=== PATIENT | female | born 2000 | race Caucasian/White ===

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

== ENCOUNTER 2023-03-31 07:33 | Inpatient (IN) ==
[2023-03-31] MEDS ORDERED: SODIUM CHLORIDE 0.9% 1000ML 1,000 ML IV STA (08:07)
[2023-03-31] MEDS ORDERED: ONDANSETRON INJ 2 MG/ML 2 ML VIAL IV STA (08:07)
--- NOTE | 2023-03-31 08:14 | Emergency Department Note ---
History of Present Illness General Chief complaint: Flu Like Symptoms Stated complaint: SORE THROAT, FEVER, BACK PAIN, EAR PAIN Time Seen by Provider: 03/31/23 07:52 History of Present Illness Maximum Pain Intensity: 8 This 22-year-old female presents today with her father, for evaluation of sore throat, nausea, vomiting, ear pain, and fever. Patient states symptoms started yesterday. Since then she has vomited 3 times. She has a significant sore throat, and has been unable to eat due to her nausea and vomiting. She did attempt to drink water on her way here, but could not retain it. She states she has been urinating. No diarrhea. She is febrile this morning. No known ill contacts, but she does work at a daycare. Her worst symptom is her sore throat. Her left ear is bothersome, but she denies any change in hearing. She denies any severe abdominal pain, but does have generalized discomfort. No other complaints. Home Medications Medication Instructions Recorded Confirmed Type cefdinir 300 mg capsule 300 mg PO BID 8 days #16 caps 04/02/23 Rx ondansetron 4 mg disintegrating 4 mg PO Q8H PRN nausea and 04/02/23 Rx tablet vomiting 5 days #14 tabs Allergies Allergy/AdvReac Type Severity Reaction Status Date / Time Penicillins Allergy Verified 06/27/21 09:35 Past Med/Surg History Medical History (Updated 04/03/23 @ 22:10 by Ricky Doherty PA-C) Allergic rhinitis Sinus infection Surgical History (Updated 04/03/23 @ 22:02 by Ricky Doherty PA-C) No pertinent past surgical history Family History (Updated 03/31/23 @ 09:41 by Ricky Doherty PA-C) Other Elevated cholesterol Social History (Updated 03/31/23 @ 09:42 by Ricky Doherty PA-C) Smoking Status: Never smoker Hx Alcohol Use: No Hx Substance Use: No Preferred Language: Tongan Communication Ability: Effective Hearing Ability: Normal Cattle Tester Required: No Beliefs That Will Affect Care: None marital status: Single Current Living Situation: Other Current Living Situation Comment: Pt is college student that lives with 5 other girls current occupational status: employed current occupation: Daycare Feels Safe at Home: Yes Assistive Devices: None Review of Systems A total of 10 systems reviewed and were otherwise negative Physical Exam Vital Signs Vital Signs - 24 hr 03/31/23 07:40 03/31/23 08:30 03/31/23 09:00 Temperature 37.6 C H Temperature Source Oral Pulse Rate 136 H Pulse Rate [Right Finger] 106 H 104 H Respiratory Rate 20 18 18 Respiratory Effort / Characteristics Non-Labored Non-Labored Spontaneous Non-Labored Spontaneous Respiratory Depth Normal Normal Normal Respiratory Pattern Regular Regular Blood Pressure 122/83 Blood Pressure [Right Arm] 129/81 129/80 Blood Pressure Mean 96 Blood Pressure Mean [Right Arm] 97 96 Blood Pressure Position [Right Arm] Lying Lying Pulse Oximetry 96 97 99 Oxygen Delivery Method Room Air Room Air Room Air Sepsis Recent Fever Within 48 Hours No Sepsis New/Unexplained Change in Mental Status N/A Sepsis Action Taken by Nursing No Action Required General: Well-developed, well-nourished, young female, in no acute distress. Obvious discomfort. Sitting on the bed. Alert and oriented. Skin: Warm and dry with good turgor. No rashes or lesions. No ecchymosis or erythema. The patient is not diaphoretic. No abrasions. HEENT: Normocephalic atraumatic. Eyes PERRLA, EOMI. No conjunctiva or scleral injection. Ears TMs intact bilaterally with good light reflexes. No erythema or bulging. No hemotympanum. Canals are patent. Nares patent bilaterally without turbinate enlargement. No significant drainage. No epistaxis. Oropharynx with erythema and exudate. Uvula midline, oral mucosa moist. No lesions present. Extremely large tonsils bilaterally. Crypts with pus and clots. Lymphatics are palpated with anterior chain enlargement and tenderness. No posterior chain enlargement or tenderness. Heart: Tachycardic with regular rhythm. No MGR. Lungs: Clear to auscultation bilaterally. No crackles, rhonchi, or wheezing. Good air movement. She is able to take a deep breath. Abdomen: Abdomen was inspected, auscultated, and palpated. Obese. Bowel sounds present x 4 but infrequent. Soft, nontender to palpation. No hepato-splenome tolu. No masses noted. No rebound, negative Gonzalez sign. No pain over McBurney's point. No CVA tenderness. Musculoskeletal: Gross motor function of the upper and lower extremities is intact and unremarkable. Neurologic: Gross sensation is intact across the upper and lower extremities by soft touch. Course Administered Medications Discontinued Medications Sodium Chloride (Nss 1000ml) 1,000 mls @ 125 mls/hr IV .Q8H STA Stop: 03/31/23 16:06 Last Infusion: 03/31/23 16:27 Dose: 0 mls/hr Documented By: Admin: 03/31/23 08:27 Dose: 125 mls/hr Documented By: AJAY Ceftriaxone Sodium (Rocephin) 2,000 mg in 70 mls @ 140 mls/hr IV NOW STA Stop: 03/31/23 10:06 Last Infusion: 03/31/23 10:25 Dose: 0 mls/hr Documented By: Admin: 03/31/23 09:51 Dose: 140 mls/hr Documented By: AJAY Sodium Chloride (Nss 1000ml) 1,000 mls @ 999 mls/hr IV .Q1H1M TIMUR Stop: 03/31/23 12:51 Last Infusion: 03/31/23 13:32 Dose: 0 mls/hr Documented By: Admin: 03/31/23 12:24 Dose: 999 mls/hr Documented By: ERIKA Acetaminophen (Ofirmev) 1,000 mg in 100 mls @ 400 mls/hr IV NOW STA Stop: 03/31/23 13:13 Last Infusion: 03/31/23 13:54 Dose: 0 mls/hr Documented By: Admin: 03/31/23 13:39 Dose: 400 mls/hr Documented By: HUSSAIN Lactated Ringer's (Lr) 1,000 mls @ 999 mls/hr IV .Q1H1M ONE Stop: 03/31/23 14:05 Last Infusion: 03/31/23 14:40 Dose: 0 mls/hr Documented By: Admin: 03/31/23 13:39 Dose: 999 mls/hr Documented By: HUSSAIN Acetaminophen (Ofirmev) 1,000 mg in 100 mls @ 400 mls/hr IV Q8H PRN PRN Reason: pain(1,2,3), fever, headache Stop: 04/03/23 14:44 Last Infusion: 04/01/23 22:17 Dose: 0 mls/hr Documented By: [id number] Admin: 04/01/23 22:02 Dose: 400 mls/hr Documented By: [id number] Infusion: 04/01/23 14:33 Dose: 0 mls/hr Documented By: Admin: 04/01/23 14:18 Dose: 400 mls/hr Documented By: Infusion: 04/01/23 06:23 Dose: 0 mls/hr Documented By: Admin: 04/01/23 06:08 Dose: 400 mls/hr Documented By: Infusion: 03/31/23 21:21 Dose: 0 mls/hr Documented By: Admin: 03/31/23 21:06 Dose: 400 mls/hr Documented By: BELLO Ceftriaxone Sodium 2,000 mg/ (Dextrose) 70 mls @ 100 mls/hr IV Q24H TIMUR; Protocol Stop: 04/08/23 08:59 Last Infusion: 04/02/23 08:58 Dose: 0 mls/hr Documented By: Admin: 04/02/23 08:14 Dose: 100 mls/hr Documented By: Infusion: 04/01/23 09:23 Dose: 0 mls/hr Documented By: Admin: 04/01/23 08:41 Dose: 100 mls/hr Documented By: TIA Lactated Ringer's (Lr) 1,000 mls @ 100 mls/hr IV .Q10H TIMUR Stop: 04/01/23 00:44 Last Infusion: 04/01/23 02:35 Dose: 0 mls/hr Documented By: Admin: 03/31/23 16:35 Dose: 100 mls/hr Documented By: TIA Ioversol (Optiray 320 100ml) 92 ml IV ONCE ONE Stop: 03/31/23 12:39 Last Admin: 03/31/23 12:40 Dose: 92 ml Documented By: WILLY Menthol (Cough Drop (Sugar Free) Richard 24 Richard/1 Box) 1 richard BUCCAL Q2H PRN PRN Reason: Sore Throat Stop: 04/30/23 12:58 Last Admin: 04/01/23 20:20 Dose: 1 richard Documented By: [id number] Admin: 04/01/23 14:20 Dose: 1 richard Documented By: Admin: 04/01/23 08:44 Dose: 1 richard Documented By: TIA Methylprednisolone (Methylprednisolone 125 Mg/2 Ml Vial) 125 mg IV NOW STA Stop: 03/31/23 11:52 Last Admin: 03/31/23 12:24 Dose: 125 mg Documented By: ERIKA Ondansetron HCl (Ondansetron Inj 2 Mg/Ml 2 Ml Vial) 4 mg IV NOW STA Stop: 03/31/23 08:08 Last Admin: 03/31/23 08:27 Dose: 4 mg Documented By: AJAY Ondansetron HCl (Ondansetron Inj 2 Mg/Ml 2 Ml Vial) Confirm Administered Dose 4 mg .ROUTE .STK-MED ONE Stop: 03/31/23 10:36 Last Admin: 03/31/23 11:09 Dose: 4 mg Documented By: AJAY Ondansetron HCl (Ondansetron Inj 2 Mg/Ml 2 Ml Vial) 4 mg IV Q4H PRN PRN Reason: Nausea Stop: 04/30/23 13:21 Last Admin: 04/02/23 06:13 Dose: 4 mg Documented By: [id number] Medical Decision Making Differential Diagnosis Strep throat, viral pharyngitis, mono, sepsis, other viral illness, gastroenteritis, bowel obstruction, food poisoning, COVID Medical Records Attestation: I reviewed the patient's medical records. Home Medications Current Medication List: was personally reviewed by me Laboratory Data CBC obtained today shows an elevated white count of 28.5. H&H. Chemistry panel is unremarkable. Strep test is positive. Urine is unremarkable other than 1+ ketones. Nasal swab was negative for COVID, influenza A, influenza B, and RSV. Procalcitonin, lactate, and blood cultures were also obtained. Procalcitonin and lactate are unremarkable. Blood cultures are pending. Monospot obtained today was negative. Urine obtained today was also negative. 03/31/23 08:25 03/31/23 08:25 Lab Results 03/31/23 03/31/23 03/31/23 Range/Units 08:25 08:25 08:25 WBC 28.58 H (4.8-10.8) K/ul RBC 4.68 (4.20-5.40) M/uL Hgb 13.4 (12.0-16.0) g/dl Hct 39.6 (37.0-47.0) % MCV 84.6 (80.0-100.0) fL MCH 28.6 (25.0-34.0) pg MCHC 33.8 (32.0-36.0) g/dL RDW Std Deviation 37.9 (36.4-46.3) fL RDW Coeff of Khadra 12.6 (11.5-14.5) % Plt Count 359 (130-400) K/uL MPV 10.6 (9.4-12.4) fL Immature Gran % (Auto) 0.9 % Neut % (Auto) 89.2 % Lymph % (Auto) 3.7 % Hubbard % (Auto) 5.9 % Eos % (Auto) 0.0 % Baso % (Auto) 0.3 % Neut # (Auto) 25.48 H (1.40-6.50) K/uL Lymph # (Auto) 1.07 L (1.2-3.4) K/uL Hubbard # (Auto) 1.68 H (0.11-0.59) K/uL Eos # (Auto) 0.01 (0-0.50) K/uL Baso # (Auto) 0.08 (0-0.2) K/uL Immature Gran # (Auto) 0.26 H (0.01-0.20) K/uL Sodium 137 (136-145) mmol/L Potassium 3.6 (3.5-5.1) mmol/L Chloride 104 (98-107) mmol/L Carbon Dioxide 25 (21-32) mmol/L Anion Gap 8 (3-11) BUN 6 (6-23) mg/dl Creatinine 0.56 L (0.6-1.2) mg/dl Est Cr Clr Drug Dosing 194.4 ml/min Est GFR ( Amer) > 150.0 ml/min Est GFR (Non-Af Amer) 132.4 ml/min BUN/Creatinine Ratio 10.7 (10-20) Glucose 111 H (70-99(Fasting)) mg/dl Lactate (0.4-2.0) mmol/L Calcium 9.4 (8.6-10.3) mg/dl Total Bilirubin 0.7 (0.2-1.0) mg/dl AST 13 (13-39) U/L ALT 14 (7-52) U/L Alkaline Phosphatase 94 (34-104) U/L Total Protein 8.0 (6.0-8.3) gm/dl Albumin 4.5 (3.4-5.0) gm/dl Globulin 3.5 (2.5-4.0) gm/dl Albumin/Globulin Ratio 1.3 (0.9-2) Procalcitonin (0-0.5) ng/ml Urine Color Urine Appearance (Clear) Urine pH (4.5-7.5) Ur Specific [place] (1.000-1.030) Urine Protein (Negative) Urine Glucose (UA) (Negative) Urine Ketones (Negative) Urine Blood (Negative) Urine Nitrite (Negative) Urine Bilirubin (Negative) Urine Urobilinogen (Negative) Ur Leukocyte Esterase (Negative) Urine Test (Negative) SARS-CoV-2 (PCR) (Negative) Monoscreen Negative (Negative) Influenza Type A (PCR) (Neg) Influenza Type B (PCR) (Neg) RSV (RT-PCR) (Neg) Group A Strep (Molecular) (Negative) Group A Strep (PCR) 03/31/23 03/31/23 03/31/23 Range/Units 08:25 08:34 08:34 WBC (4.8-10.8) K/ul RBC (4.20-5.40) M/uL Hgb (12.0-16.0) g/dl Hct (37.0-47.0) % MCV (80.0-100.0) fL MCH (25.0-34.0) pg MCHC (32.0-36.0) g/dL RDW Std Deviation (36.4-46.3) fL RDW Coeff of Khadra (11.5-14.5) % Plt Count (130-400) K/uL MPV (9.4-12.4) fL Immature Gran % (Auto) % Neut % (Auto) % Lymph % (Auto) % [place] % (Auto) % Eos % (Auto) % Baso % (Auto) % Neut # (Auto) (1.40-6.50) K/uL Lymph # (Auto) (1.2-3.4) K/uL [place] # (Auto) (0.11-0.59) K/uL Eos # (Auto) (0-0.50) K/uL Baso # (Auto) (0-0.2) K/uL Immature Gran # (Auto) (0.01-0.20) K/uL Sodium (136-145) mmol/L Potassium (3.5-5.1) mmol/L Chloride (98-107) mmol/L Carbon Dioxide (21-32) mmol/L Anion Gap (3-11) BUN (6-23) mg/dl Creatinine (0.6-1.2) mg/dl Est Cr Clr Drug Dosing ml/min Est GFR ( Amer) ml/min Est GFR (Non-Af Amer) ml/min BUN/Creatinine Ratio (10-20) Glucose (70-99(Fasting)) mg/dl Lactate (0.4-2.0) mmol/L Calcium (8.6-10.3) mg/dl Total Bilirubin (0.2-1.0) mg/dl AST (13-39) U/L ALT (7-52) U/L Alkaline Phosphatase (34-104) U/L Total Protein (6.0-8.3) gm/dl Albumin (3.4-5.0) gm/dl Globulin (2.5-4.0) gm/dl Albumin/Globulin Ratio (0.9-2) Procalcitonin (0-0.5) ng/ml Urine Color Urine Appearance (Clear) Urine pH (4.5-7.5) Ur Specific [place] (1.000-1.030) Urine Protein (Negative) Urine Glucose (UA) (Negative) Urine Ketones (Negative) Urine Blood (Negative) Urine Nitrite (Negative) Urine Bilirubin (Negative) Urine Urobilinogen (Negative) Ur Leukocyte Esterase (Negative) Urine Test (Negative) SARS-CoV-2 (PCR) NEGATIVE (Negative) Monoscreen (Negative) Influenza Type A (PCR) Negative (Neg) Influenza Type B (PCR) Negative (Neg) RSV (RT-PCR) Negative (Neg) Group A Strep (Molecular) Positive A (Negative) Group A Strep (PCR) Cancelled 03/31/23 03/31/23 03/31/23 Range/Units 09:15 09:15 09:16 WBC (4.8-10.8) K/ul RBC (4.20-5.40) M/uL Hgb (12.0-16.0) g/dl Hct (37.0-47.0) % MCV (80.0-100.0) fL MCH (25.0-34.0) pg MCHC (32.0-36.0) g/dL RDW Std Deviation (36.4-46.3) fL RDW Coeff of Khadra (11.5-14.5) % Plt Count (130-400) K/uL MPV (9.4-12.4) fL Immature Gran % (Auto) % Neut % (Auto) % Lymph % (Auto) % [place] % (Auto) % Eos % (Auto) % Baso % (Auto) % Neut # (Auto) (1.40-6.50) K/uL Lymph # (Auto) (1.2-3.4) K/uL [place] # (Auto) (0.11-0.59) K/uL Eos # (Auto) (0-0.50) K/uL Baso # (Auto) (0-0.2) K/uL Immature Gran # (Auto) (0.01-0.20) K/uL Sodium (136-145) mmol/L Potassium (3.5-5.1) mmol/L Chloride (98-107) mmol/L Carbon Dioxide (21-32) mmol/L Anion Gap (3-11) BUN (6-23) mg/dl Creatinine (0.6-1.2) mg/dl Est Cr Clr Drug Dosing ml/min Est GFR ( Amer) ml/min Est GFR (Non-Af Amer) ml/min BUN/Creatinine Ratio (10-20) Glucose (70-99(Fasting)) mg/dl Lactate (0.4-2.0) mmol/L Calcium (8.6-10.3) mg/dl Total Bilirubin (0.2-1.0) mg/dl AST (13-39) U/L ALT (7-52) U/L Alkaline Phosphatase (34-104) U/L Total Protein (6.0-8.3) gm/dl Albumin (3.4-5.0) gm/dl Globulin (2.5-4.0) gm/dl Albumin/Globulin Ratio (0.9-2) Procalcitonin 0.06 (0-0.5) ng/ml Urine Color Yellow Urine Appearance Clear (Clear) Urine pH 7.5 (4.5-7.5) Ur Specific [place] 1.005 (1.000-1.030) Urine Protein Negative (Negative) Urine Glucose (UA) Negative (Negative) Urine Ketones 1+ H (Negative) Urine Blood Negative (Negative) Urine Nitrite Negative (Negative) Urine Bilirubin Negative (Negative) Urine Urobilinogen Negative (Negative) Ur Leukocyte Esterase Negative (Negative) Urine Test Negative (Negative) SARS-CoV-2 (PCR) (Negative) Monoscreen (Negative) Influenza Type A (PCR) (Neg) Influenza Type B (PCR) (Neg) RSV (RT-PCR) (Neg) Group A Strep (Molecular) (Negative) Group A Strep (PCR) 03/31/23 Range/Units 09:22 WBC (4.8-10.8) K/ul RBC (4.20-5.40) M/uL Hgb (12.0-16.0) g/dl Hct (37.0-47.0) % MCV (80.0-100.0) fL MCH (25.0-34.0) pg MCHC (32.0-36.0) g/dL RDW Std Deviation (36.4-46.3) fL RDW Coeff of Khadra (11.5-14.5) % Plt Count (130-400) K/uL MPV (9.4-12.4) fL Immature Gran % (Auto) % Neut % (Auto) % Lymph % (Auto) % [place] % (Auto) % Eos % (Auto) % Baso % (Auto) % Neut # (Auto) (1.40-6.50) K/uL Lymph # (Auto) (1.2-3.4) K/uL [place] # (Auto) (0.11-0.59) K/uL Eos # (Auto) (0-0.50) K/uL Baso # (Auto) (0-0.2) K/uL Immature Gran # (Auto) (0.01-0.20) K/uL Sodium (136-145) mmol/L Potassium (3.5-5.1) mmol/L Chloride (98-107) mmol/L Carbon Dioxide (21-32) mmol/L Anion Gap (3-11) BUN (6-23) mg/dl Creatinine (0.6-1.2) mg/dl Est Cr Clr Drug Dosing ml/min Est GFR ( Amer) ml/min Est GFR (Non-Af Amer) ml/min BUN/Creatinine Ratio (10-20) Glucose (70-99(Fasting)) mg/dl Lactate 1.2 (0.4-2.0) mmol/L Calcium (8.6-10.3) mg/dl Total Bilirubin (0.2-1.0) mg/dl AST (13-39) U/L ALT (7-52) U/L Alkaline Phosphatase (34-104) U/L Total Protein (6.0-8.3) gm/dl Albumin (3.4-5.0) gm/dl Globulin (2.5-4.0) gm/dl Albumin/Globulin Ratio (0.9-2) Procalcitonin (0-0.5) ng/ml Urine Color Urine Appearance (Clear) Urine pH (4.5-7.5) Ur Specific [place] (1.000-1.030) Urine Protein (Negative) Urine Glucose (UA) (Negative) Urine Ketones (Negative) Urine Blood (Negative) Urine Nitrite (Negative) Urine Bilirubin (Negative) Urine Urobilinogen (Negative) Ur Leukocyte Esterase (Negative) Urine Test (Negative) SARS-CoV-2 (PCR) (Negative) Monoscreen (Negative) Influenza Type A (PCR) (Neg) Influenza Type B (PCR) (Neg) RSV (RT-PCR) (Neg) Group A Strep (Molecular) (Negative) Group A Strep (PCR) ECG Data Additional Comments: The patient was placed on a case monitor upon initially entering the room. She remained in a normal sinus rhythm with a rate in the 60s and 70s. No ectopy was noted. Blood Pressure Blood Pressure Findings: Normal blood pressure MDM Narrative The patient was evaluated in room A4. Conservative care measures were discussed. IV was established. She was hydrated with 1 L normal sterile saline IV bolus. A second liter was given at 125 mL/h. Labs were obtained. She was placed on a case monitor and remained so during the entirety of her stay. Blood work showed a significantly elevated white count of 28.5. Strep test was positive. She is likely on the verge of sepsis. Procalcitonin and lactate were unremarkable. Blood cultures were obtained. She was then given IV antibiotics. Recommendation for admission was discussed with the patient and her father. She is in agreement. This was also discussed with Dr. Washington. [facility] Please see their dictation for final management. Patient did receive a CT scan imaging of her soft tissue of the neck prior to transfer, to be sure there was no airway compromise. Tonsils are enlarged but no abscesses are noted. Findings are consistent with tonsillitis. Impression & Plan Strep pharyngitis, Acute bacterial tonsillitis The patient was educated regarding today's findings. Conservative care measures were discussed. She was hydrated with 1 L normal sterile saline IV bolus. A s econd liter was given at 125 mL/h. She was given Zofran 4 mg IV. Patient remained stable while in the ED. After further imaging and watchful waiting, the patient still had episodes of nausea and vomiting. Because of this, observation was recommended. She is in agreement. [facility]. She was given Rocephin 2 g IV for broad coverage. I do not think she will require tonsillectomy at this time, but it may be required once her current infection subsides. Discharge Plan Visit Data Chief Complaint: Flu Like Symptoms Stated Complaint: SORE THROAT, FEVER, BACK PAIN, EAR PAIN ED Provider: Billy Washington ED Midlevel Provider: Ricky Doherty Discharge Problem: Strep pharyngitis, Acute bacterial tonsillitis Patient Disposition: Admitted As Inpatient Discharge Instructions Interventions: ED Discharge Assessment Last Done: 03/31/23 14:33
[2023-03-31 08:48] LABS: Hematocrit (blood only) 39.6 % (37.0-47.0); Hemoglobin 13.4 g/dl (12.0-16.0); Mean Corpuscular Hemoglobin 28.6 pg (25.0-34.0); Mean Corpuscular Hgb Conc 33.8 g/dL (32.0-36.0); Mean Corpuscular Volume 84.6 fL (80.0-100.0); Mean Platelet Volume 10.6 fL (9.4-12.4); Platelet Count 359 K/uL (130-400); RDW Coefficient of Variation 12.6 % (11.5-14.5); RDW Standard Deviation 37.9 fL (36.4-46.3); Red Blood Count 4.68 M/uL (4.20-5.40); White Blood Count 28.58 K/ul (4.8-10.8)
[2023-03-31 09:03] LABS: Alanine Aminotransferase 14 U/L (7-52); Albumin Globulin Ratio 1.3 (0.9-2); Albumin Level 4.5 gm/dl (3.4-5.0); Alkaline Phosphatase 94 U/L (34-104); Anion Gap 8 (3-11); Aspartate Aminotransferase 13 U/L (13-39); BUN Creatinine Ratio 10.7 (10-20); Bilirubin,Total 0.7 mg/dl (0.2-1.0); Blood Urea Nitrogen 6 mg/dl (6-23); Calcium 9.4 mg/dl (8.6-10.3); Carbon Dioxide 25 mmol/L (21-32); Chloride 104 mmol/L (98-107); Creatinine Clr Calc Pharmacy 194.4 ml/min; Est GFR (African American) > 150.0 ml/min; Est GFR (Non-African American) 132.4 ml/min; Globulin 3.5 gm/dl (2.5-4.0); Glucose 111 mg/dl (70-99(Fasting)); Potassium 3.6 mmol/L (3.5-5.1); Sodium 137 mmol/L (136-145)
[2023-03-31 09:06] LABS: Basophils # (auto) 0.08 K/uL (0-0.2); Basophils % (auto) 0.3 %; Eosinophils # (auto) 0.01 K/uL (0-0.50); Immature Granulocytes # (auto) 0.26 K/uL (0.01-0.20); Immature Granulocytes % (auto) 0.9 %; Lymphocytes # (auto) 1.07 K/uL (1.2-3.4); Lymphocytes % (auto) 3.7 %; Monocytes # (auto) 1.68 K/uL (0.11-0.59); Monocytes % (auto) 5.9 %; Neutrophils # (auto) 25.48 K/uL (1.40-6.50); Neutrophils % (auto) 89.2 %
[2023-03-31 09:25] LABS: Influenza A virus by PCR Negative (Neg); Influenza B virus by PCR Negative (Neg); RSV by PCR Negative (Neg); SARS CoV2 RNA(COVID-19) Ceph NEGATIVE (Negative)
[2023-03-31 09:28] LABS: Appearance Urine Clear (Clear); Bilirubin Urine Negative (Negative); Blood Urine Negative (Negative); Color Urine Yellow; Glucose Urine UA Negative (Negative); Ketones Urine 1+ (Negative); Leukocyte Esterase Urine Negative (Negative); Nitrite Urine Negative (Negative); Protein Urine Negative (Negative); Specific Gravity Urine 1.005 (1.000-1.030); Urobilinogen Urine Negative (Negative); pH Urine 7.5 (4.5-7.5)
[2023-03-31] MEDS ORDERED: cefTRIAXone SODIUM 2,000 MG/70 ML BAG IV STA (09:37)
[2023-03-31] MEDS ORDERED: ONDANSETRON INJ 2 MG/ML 2 ML VIAL ONE (10:35)
[2023-03-31] MEDS ORDERED: SODIUM CHLORIDE 0.9% 1000ML 1,000 ML IV SCH (11:51)
[2023-03-31] MEDS ORDERED: methylPREDNISolone 125 MG/2 ML VIAL IV STA (11:51)
[2023-03-31 12:12] LABS: Pregnancy Test, Urine Negative (Negative)
--- NOTE | 2023-03-31 12:25 | XRay Report ---
XR chest 1V portable HISTORY: sepsis COMPARISON: None. FINDINGS: No pneumothorax. No pleural effusions. The cardiac silhouette is normal in size. No evidenc e for pulmonary edema. No acute fractures identified. Hazy appearance to the right medial lung base i s likely due to vascular crowding from the low lung volumes. Otherwise, no focal lung consolidations to suggest a pneumonia. IMPRESSION: No acute process. ACT 112: Negative or not required by law. Electronically signed by: Fahad Brown M.D. 03/31/2023 12:23 PM
--- NOTE | 2023-03-31 12:30 | History & Physical Report ---
Date of Service March 31, 2023 Assessment & Plan (1) Sepsis: Plan: -Admit to the PCU on tele and continuous pulse oximetry -Currently hemodynamically stable and stable on RA -Noted to be tachycardic, with a lekocytosis of 28K, source appears to be Group A strep positive today -Lactate was WNL, blood cultures obtained, S/P 1L NSS in the ED with another started, will switch to 1L LR now and monitor for response -S/P one dose of Ceftriaxone and 125 mcg IV methylprednisolone in the ED -CT of the neck negative for abscess -Will continue with 2gm ceftriaxone q24h for now -Hold additional systemic steroids for now, if she continues to decline or is not improving by tomorrow would consider continuing -Follow blood cultures and tailor abs to results -BL SCDs for DVT PPX -AM CBC and BMP -Clear liquid diet, advance as tolerated (2) Strep pharyngitis: Plan: -Positive on throat swab today -Continue ceftriaxone for now -IV tylenol q8h prn for pain(1,2,3), fever, headache -PRN cough drops -Continue to monitor for signs of airway compromise (3) Nausea and vomiting: Plan: -Currently controlled after zofran in the ED -QTc WNL -Continue with IV prn zofran for now Plan The patient was discussed with Dr. Tolliver at the time of the admission History of Present Illness Chief Complaint: Sore throat, nausea, vomiting Primary Care Provider: Urbano Lomas DO Shawna is a 22 year old female with no significant PMH who presented to the [facility] ED on 03/31/23 with complains of sore throat, nausea, and vomiting. She was noted to be hemodynamically stable with a temperature of 37.6 C, HR of 136, and stable on RA. Labs were significant for a leukocytosis of 28 with left shift of 25, and group A strep positive. Chest xray was negative for acute findings. CT of the neck was w/con was without signs of abscess. She was noted to have moderate narrowing of the airway at the palatine tonsils. Prior to admission b lood cultures were obtained, the patient was given a dose of ceftriaxone, 1L NSS with a second 1L started, 125 mg IV methylprednisolone, and 4 mg IV zofran. At the time of the exam the patient was sitting in bed in no acute distress with her father sitting bedside. She states that she started to develop a sore throat, nausea, vomiting, and a non-productive cough 48 hours ago. Her symptoms have progressed to the point that it is very painful to swallow food but she is able to swallow liquids, she does not feel as though she has difficulty breathing. She feels a little improved compared to arrival. She denies hematemesis at this time and is on no prescription medications. Please see Dr. Tolliver's attestation for any changes to the treatment plan Allergies Allergy/AdvReac Type Severity Reaction Status Date / Time Penicillins Allergy Verified 06/27/21 09:35 Home Medications Medication Instructions Recorded Confirmed Type No Known Home Medications 03/31/23 03/31/23 History Past Med/Surg History Medical History (Updated 03/31/23 @ 13:17 by Teja Zazueta PA-C) Allergic rhinitis Sinus infection Family History (Updated 03/31/23 @ 09:41 by Ricky Doherty PA-C) Other Elevated cholesterol Social History (Updated 03/31/23 @ 09:42 by Ricky Doherty PA-C) Smoking Status: Never smoker Hx Alcohol Use: No Hx Substance Use: No Preferred Language: Khmer Communication Ability: Effective Hearing Ability: Normal General Doc Required: No Beliefs That Will Affect Care: None marital status: Single Current Living Situation: Other Current Living Situation Comment: Pt is college student that lives with 5 other girls current occupational status: employed current occupation: Daycare Other Information That Helps Us Care for You: No Feels Safe at Home: Yes Assistive Devices: None Assistive Devices Comment: none used Physical Exam Physical Exam: Physical Exam: General: In no acute distress, stated age, well-nourished, non-toxic appearing HEENT: Normocephalic, atraumatic, no scleral icterus, pupils around round, symmetrical, and reactive to light, moist mucus membranes, BL swollen tonsils right > left with exudates noted BL, tonsils are not touching, no stridor noted, able to swallow but with pain, trachea midline, no thyromegaly Chest/Pulm: No respiratory distress, symmetrical chest expansion, clear breath sounds throughout Cardiac: tachycardic rate, regular rhythm, no murmurs noted Abdomen: Negative for ascites and bruising, normoactive bowel sounds, soft, non-tender to palpation throughout Musculoskeletal: Symmetrical and without signs of acute trauma, upper and lower extremities with full ROM, no atrophy, spasticity, or flaccidity Extremities: Radial, dorsalis pedis, and posterior tibial pulses are intact and symmetrical, no edema noted in the BL LE's Skin: Warm, dry, no rashes , lesions, or scars noted Neuro: Alert and oriented to person, place, month, year, and president, no focal defects, no tremors noted Psych: No acute distress, calm and cooperative during the exam Results & Data Results & Data Vital Signs (Past 12 Hours) Vital Signs Temp Pulse Pulse Resp BP BP Pulse Ox 03/31/23 10:00 114 H 18 133/87 99 03/31/23 09:00 104 H 18 129/80 99 03/31/23 08:30 106 H 18 129/81 97 03/31/23 07:40 37.6 C H 136 H 20 122/83 96 O2 Del Method 03/31/23 10:00 Room Air 03/31/23 09:00 Room Air 03/31/23 08:30 Room Air 03/31/23 07:40 Room Air Laboratory Results Abnormal lab results 03/31/23 03/31/23 03/31/23 Range/Units 08:25 08:25 08:25 WBC 28.58 H (4.8-10.8) K/ul Neut # (Auto) 25.48 H (1.40-6.50) K/uL Lymph # (Auto) 1.07 L (1.2-3.4) K/uL [place] # (Auto) 1.68 H (0.11-0.59) K/uL Immature Gran # (Auto) 0.26 H (0.01-0.20) K/uL Creatinine 0.56 L (0.6-1.2) mg/dl Glucose 111 H (70-99(Fasting)) mg/dl Urine Ketones (Negative) Group A Strep (Molecular) Positive A (Negative) 03/31/23 Range/Units 09:15 WBC (4.8-10.8) K/ul Neut # (Auto) (1.40-6.50) K/uL Lymph # (Auto) (1.2-3.4) K/uL [place] # (Auto) (0.11-0.59) K/uL Immature Gran # (Auto) (0.01-0.20) K/uL Creatinine (0.6-1.2) mg/dl Glucose (70-99(Fasting)) mg/dl Urine Ketones 1+ H (Negative) Group A Strep (Molecular) (Negative) Diagnostic Findings Chest X-Ray 03/31/23 11:55 XR chest 1V portable HISTORY: sepsis COMPARISON: None. FINDINGS: No pneumothorax. No pleural effusions. The cardiac silhouette is normal in size. No evidence for pulmonary edema. No acute fractures identified. Hazy appearance to the right medial lung base is likely due to vascular crowding from the low lung volumes. Otherwise, no focal lung consolidations to suggest a pneumonia. IMPRESSION: No acute process. ACT 112: Negative or not required by law. Electronically signed by: Fahad Brown M.D. 03/31/2023 12:23 PM Soft Tissue Neck CT 03/31/23 11:55 CT soft tissue neck w con CT DOSE: 533.49 mGy.cm CLINICAL HISTORY: tonsilitis, r/o abscess TECHNIQUE: Multiaxial CT images of the neck were performed following the intravenous administration of 92 cc of Optiray 320. Sagittal and coronal reformations were performed at the workstation by the radiologist. A dose lowering technique was utilized adhering to the principles of ALARA. COMPARISON STUDY: None. FINDINGS: The visualized brain parenchyma and orbits are unremarkable. The pterygopalatine fossa and paratracheal fat spaces are maintained. The prevertebral soft tissues and epiglottis are normal in thickness. The thyroid gland enhances normally. The major cervical vessels appear patent. The parotid and submandibular glands are symmetric. Mild upper cervical lymphadenopathy which is likely reactive. The paranasal sinuses and mastoid air cells are clear. No acute fractures identified. The lung apices are clear. Enlarged and heterogeneously enhancing adenoid and palatine tonsils consistent with a tonsillitis. No loculated fluid collections to suggest an abscess at this time. The palatine tonsils abut at the midline resulting in moderate narrowing of the airway at this level. IMPRESSION: Enlarged and heterogeneously enhancing adenoid and palatine tonsils consistent with a tonsillitis. No loculated fluid collections to suggest an abscess at this time. The palatine tonsils abut at the midline resulting in moderate narrowing of the airway at this level. ACT 112: Negative or not required by law. Electronically signed by: Fahad Brown M.D. 03/31/2023 12:54 PM ECG Additional Comments: Sinus tachycardia Nonspecific ST and T wave abnormality Abnormal ECG No previous ECGs available Code Status & VTE Plan Code Status Full code VTE Prophylaxis Plan VTE Prophylaxis will be ordered: Yes Supervising Physician Co-Signing Physician Notes I personally saw and examined the patient. I verified all harper points and agree with Teja Zazueta PA-C with the following exceptions and/or additions: 22 year old female with sore throat, nausea, vomiting and fever. O/E A&Ox3, HS increased rate, regular rhythm, Chest CTAB, no respiratory distress or stridor, Abdo SNT A/P Sepsis, group A strep throat tonsillitis - no abscess on CT but significantly enlarged tonsils and concerns for airway compromise on imaging however no stridor on exam. Solu-medrol 125mg IV given in ER will defer further steroids to provider tomorrow if not improving. Ceftriaxone, follow up blood cultures. Continue IV fluids. PG Care Time/CCT Total # of Minutes Spent Total Time Spent with Patient: Total time spent is greater than 50% in coordination of care (as documented) at patient's floor/unit and/or counseling patient: C[place] [address] INT INP/OBS CARE 3/75MIN Patient Type Established Medical Decision Making High Complexity Diagnoses Sepsis A41.9 Strep pharyngitis J02.0 Nausea and vomiting R11.2
[2023-03-31] MEDS ORDERED: OPTIRAY 320 100ml IV ONE (12:38)
--- NOTE | 2023-03-31 12:56 | CT Scan Report ---
CT soft tissue neck w con CT DOSE: 533.49 mGy.cm CLINICAL HISTORY: tonsilitis, r/o abscess TECHNIQUE: Multiaxial CT images of the neck were performed following the intravenous administration o f 92 cc of Optiray 320. Sagittal and coronal reformations were performed at the workstation by the ra diologist. A dose lowering technique was utilized adhering to the principles of ALARA. COMPARISON STUDY: None. FINDINGS: The visualized brain parenchyma and orbits are unremarkable. The pterygopalatine fossa and paratracheal fat spaces are maintained. The prevertebral soft tissues and epiglottis are normal in th ickness. The thyroid gland enhances normally. The major cervical vessels appear patent. The parotid a nd submandibular glands are symmetric. Mild upper cervical lymphadenopathy which is likely reactive. The paranasal sinuses and mastoid air cells are clear. No acute fractures identified. The lung apices are clear. Enlarged and heterogeneously enhancing adenoid and palatine tonsils consistent with a ton sillitis. No loculated fluid collections to suggest an abscess at this time. The palatine tonsils abu t at the midline resulting in moderate narrowing of the airway at this level. IMPRESSION: Enlarged and heterogeneously enhancing adenoid and palatine tonsils consistent with a tonsillitis. N o loculated fluid collections to suggest an abscess at this time. The palatine tonsils abut at the mi dline resulting in moderate narrowing of the airway at this level. ACT 112: Negative or not required by law. Electronically signed by: Fahad Brown M.D. 03/31/2023 12:54 PM
[2023-03-31] MEDS ORDERED: ACETAMINOPHEN 1,000 MG/100 ML VIAL IV STA (12:59)
[2023-03-31] MEDS ORDERED: LACTATED RINGER'S 1,000 ML IV ONE (13:05)
[2023-03-31] MEDS ORDERED: ONDANSETRON INJ 2 MG/ML 2 ML VIAL IV PRN (13:22)
[2023-03-31] MEDS ORDERED: LACTATED RINGER'S 1,000 ML IV SCH (14:45)
[2023-03-31] MEDS: ACETAMINOPHEN 1,000 MG/100 ML VIAL IV PRN (21:06)
[2023-04-01] MEDS: ACETAMINOPHEN 1,000 MG/100 ML VIAL IV PRN ×3 (06:08→22:02)
[2023-04-01 06:28] LABS: Hematocrit (blood only) 36.1 % (37.0-47.0); Hemoglobin 12.2 g/dl (12.0-16.0); Mean Corpuscular Hemoglobin 28.8 pg (25.0-34.0); Mean Corpuscular Hgb Conc 33.8 g/dL (32.0-36.0); Mean Corpuscular Volume 85.1 fL (80.0-100.0); Mean Platelet Volume 10.9 fL (9.4-12.4); Platelet Count 370 K/uL (130-400); RDW Coefficient of Variation 12.9 % (11.5-14.5); RDW Standard Deviation 40.1 fL (36.4-46.3); Red Blood Count 4.24 M/uL (4.20-5.40); White Blood Count 37.03 K/ul (4.8-10.8)
[2023-04-01 06:48] LABS: Anion Gap 6 (3-11); BUN Creatinine Ratio 15.8 (10-20); Blood Urea Nitrogen 6 mg/dl (6-23); Carbon Dioxide 24 mmol/L (21-32); Chloride 107 mmol/L (98-107); Creatinine Clr Calc Pharmacy 285.6 ml/min; Est GFR (African American) > 150.0 ml/min; Est GFR (Non-African American) > 150.0 ml/min; Glucose 110 mg/dl (70-99(Fasting)); Potassium 4.1 mmol/L (3.5-5.1); Sodium 137 mmol/L (136-145)
[2023-04-01 06:51] LABS: Basophils # (auto) 0.09 K/uL (0-0.2); Basophils % (auto) 0.2 %; Eosinophils # (auto) 0.01 K/uL (0-0.50); Immature Granulocytes # (auto) 0.65 K/uL (0.01-0.20); Immature Granulocytes % (auto) 1.8 %; Lymphocytes # (auto) 2.26 K/uL (1.2-3.4); Lymphocytes % (auto) 6.1 %; Monocytes # (auto) 2.13 K/uL (0.11-0.59); Monocytes % (auto) 5.8 %; Neutrophils # (auto) 31.89 K/uL (1.40-6.50); Neutrophils % (auto) 86.1 %
--- NOTE | 2023-04-01 08:34 | Hospitalist Progress Note ---
Date of Service April 01, 2023 Assessment & Plan (1) Sepsis: Plan: Leukocytosis 27 -> 37 with tachycardia on admission, GAS positive, with sore throat and CT neck negative for abscess Normal lactate, received IVF overnight and now on clear liquid diet Without significant change in tonsillar exam today, continue to monitor. Increase in leukocytosis is suspected to be secondary to high-dose steroids received in ER, continue to monitor with daily CBC BCx pending, continue ceftriaxone 2g daily while awaiting sensitivities and culture Received methylpred 125mcg IV in ER, defer further steroids at this time Consider ENT consult / repeat imaging tomorrow if symptoms not improving/worsening (2) Strep pharyngitis: Plan: Positive throat swab on admission Continue ceftriaxone for now IV tylenol q8h prn for pain/fever PRN cough drops Continue to monitor for signs of airway compromise (3) Nausea and vomiting: Plan: Resolved, continue Zofran as needed Admission and Anticipated Discharge Date Admission Date: March 31, 2023 Subjective Patient without any acute events overnight. Vital signs have been normal without fevers overnight and she has been saturating well on room air. She notes that she can "feel her uvula" today and denies being able to yesterday. She denies any difficulty with swallowing or difficulty breathing, no wheezing noises. Denies other complaints. Review of Systems Review of Systems: All systems reviewed & are unremarkable except as noted in Subjective Physical Exam Constitutional: WD/WN, vitals as above ENMT: Patient with left greater than right tonsillar swelling, bilateral tonsillar exudates, no stridor, no swallowing difficulty No uvular deviation or uvular abnormality noted on exam Respiratory: normal respiratory effort, lungs clear to auscultation Cardiovascular: RRR, no murmur, no edema Gastrointestinal (Abdomen): normal bowel sounds, soft, nontender, no hepatosplenomegaly Skin: no rashes, warm and dry Psychiatric: A+Ox3, euthymic affect Results & Data Results & Data Vital Signs (Past 12 Hours) Vital Signs Temp Pulse Pulse Resp BP Pulse Ox O2 Del Method 04/01/23 06:41 36.5 C 71 18 109/71 96 Room Air 04/01/23 02:39 36.3 C L 66 18 100/66 95 Room Air 03/31/23 23:06 36.4 C L 69 20 100/62 96 Room Air 03/31/23 22:14 62 PG Care Time/CCT Total # of Minutes Spent Total Time Spent with Patient: Total time spent is greater than 50% in coordination of care (as documented) at patient's floor/unit and/or counseling patient: Coding Level of Care Code 17386 SUB INP/OBS CARE 2/35MIN Diagnoses Sepsis A41.9 Strep pharyngitis J02.0 Nausea and vomiting R11.2
[2023-04-01] MEDS: cefTRIAXone SODIUM 2,000 MG in DEXTROSE 5% 50 ML IV SCH (08:41)
[2023-04-01] MEDS: COUGH DROP (SUGAR FREE) LOZ 24 LOZ/1 BOX BUCCAL PRN ×3 (08:44→20:20)
--- NOTE | 2023-04-01 10:24 | Electrocardiogram Report ---
Test Reason : Blood Pressure : / mmHG Vent. Rate : 119 BPM Atrial Rate : 119 BPM P-R Int : 144 ms QRS Dur : 078 ms QT Int : 316 ms P-R-T Axes : 031 054 008 degrees QTc Int : 444 ms Sinus tachycardia Nonspecific ST and T wave abnormality Abnormal ECG No previous ECGs available Confirmed by Urbano Romero ([id number]) on 04/01/2023 10:24:03 AM Referred By: REFERRED SELF Confirmed By:Urbano Romero
[2023-04-02 06:38] LABS: Basophils # (auto) 0.07 K/uL (0-0.2); Basophils % (auto) 0.5 %; Eosinophils # (auto) 0.12 K/uL (0-0.50); Eosinophils % (auto) 0.8 %; Hematocrit (blood only) 35.7 % (37.0-47.0); Hemoglobin 11.8 g/dl (12.0-16.0); Immature Granulocytes # (auto) 0.05 K/uL (0.01-0.20); Immature Granulocytes % (auto) 0.3 %; Lymphocytes # (auto) 3.47 K/uL (1.2-3.4); Lymphocytes % (auto) 23.8 %; Mean Corpuscular Hemoglobin 28.2 pg (25.0-34.0); Mean Corpuscular Hgb Conc 33.1 g/dL (32.0-36.0); Mean Corpuscular Volume 85.4 fL (80.0-100.0); Mean Platelet Volume 10.9 fL (9.4-12.4); Monocytes # (auto) 1.01 K/uL (0.11-0.59); Monocytes % (auto) 6.9 %; Neutrophils # (auto) 9.85 K/uL (1.40-6.50); Neutrophils % (auto) 67.7 %; Platelet Count 336 K/uL (130-400); RDW Coefficient of Variation 13.2 % (11.5-14.5); RDW Standard Deviation 41.1 fL (36.4-46.3); Red Blood Count 4.18 M/uL (4.20-5.40); White Blood Count 14.57 K/ul (4.8-10.8)
[2023-04-02 06:39] LABS: Anion Gap 6 (3-11); BUN Creatinine Ratio 19.3 (10-20); Blood Urea Nitrogen 11 mg/dl (6-23); Calcium 8.8 mg/dl (8.6-10.3); Carbon Dioxide 27 mmol/L (21-32); Chloride 106 mmol/L (98-107); Creatinine Clr Calc Pharmacy 191.1 ml/min; Est GFR (African American) > 150.0 ml/min; Est GFR (Non-African American) 131.6 ml/min; Glucose 80 mg/dl (70-99(Fasting)); Sodium 139 mmol/L (136-145)
[2023-04-02] MEDS: cefTRIAXone SODIUM 2,000 MG in DEXTROSE 5% 50 ML IV SCH (08:14)
--- NOTE | 2023-04-02 12:19 | Discharge Summary ---
Discharge Summary Date of Service April 02, 2023 Notes For Next Care Provider Continue cefdinir x8 more days for total of 10 days Can follow up with ENT if needed if symptoms not improving Recommend patient [employer] Superintendent to determine if penicillin is true ongoing allergy, patient provided contact information Admission HPI Per Admitting Provider Shawna is a 22 year old female with no significant PMH who presented to the [facility] ED on 03/31/23 with complains of sore throat, nausea, and vomiting. She was noted to be hemodynamically stable with a temperature of 37.6 C, HR of 136, and stable on RA. Labs were significant for a leukocytosis of 28 with left shift of 25, and group A strep positive. Chest xray was negative for acute findings. CT of the neck was w/con was without signs of abscess. She was noted to have moderate narrowing of the airway at the palatine tonsils. Prior to admission blood cultures were obtained, the patient was given a dose of ceftriaxone, 1L NSS with a second 1L started, 125 mg IV methylprednisolone, and 4 mg IV zofran. At the time of the exam the patient was sitting in bed in no acute distress with her father sitting bedside. She states that she started to develop a sore throat, nausea, vomiting, and a non-productive cough 48 hours ago. Her symptoms have progressed to the point that it is very painful to swallow food but she is able to swallow liquids, she does not feel as though she has difficulty breathing. She feels a little improved compared to arrival. She denies hematemesis at this time and is on no prescription medications. Please see Dr. Tolliver's attestation for any changes to the treatment plan Admission Exam Per Admitting Provider General: In no acute distress, stated age, well-nourished, non-toxic appearing HEENT: Normocephalic, atraumatic, no scleral icterus, pupils around round, symmetrical, and reactive to light, moist mucus membranes, BL swollen tonsils r ight > left with exudates noted BL, tonsils are not touching, no stridor noted, able to swallow but with pain, trachea midline, no thyromegaly Chest/Pulm: No respiratory distress, symmetrical chest expansion, clear breath sounds throughout Cardiac: tachycardic rate, regular rhythm, no murmurs noted Abdomen: Negative for ascites and bruising, normoactive bowel sounds, soft, non- tender to palpation throughout Musculoskeletal: Symmetrical and without signs of acute trauma, upper and lower extremities with full ROM, no atrophy, spasticity, or flaccidity Extremities: Radial, dorsalis pedis, and posterior tibial pulses are intact and symmetrical, no edema noted in the BL LE's Skin: Warm, dry, no rashes , lesions, or scars noted Neuro: Alert and oriented to person, place, month, year, and president, no focal defects, no tremors noted Psych: No acute distress, calm and cooperative during the exam Principal Dx & Hospital Course #1 = Principal Diagnosis (1) Sepsis: Resolved Leukocytosis improving from original level of 27 to 14 today with IV antibiotics Normal lactate this admission, on discharge day tolerating regular diet and liquids without difficulty swallowing, no further fevers BCx NGTD at 48 hours, ceftriaxone transitioned to cefdinir BID for total of 10 days of antibiotic treatment Received methylpred 125mcg IV in ER, no further steroids received, no stridor, patent airway Recommended [employer] Superintendent appointment to perform penicillin allergy testing as her rash occurred as a child during a URI (2) Strep pharyngitis: Positive throat swab on admission Abx as above PRN cough drops and Tylenol (3) Nausea and vomiting: Resolved, continue Zofran as needed Discharge Exam Constitutional WD/WN, vitals as above ENMT L>R tonsillar erythema with overall decrease in exudates and erythema compared to exam 04/01 Respiratory normal respiratory effort, lungs clear to auscultation no stridor Cardiovascular RRR, no murmur, no edema Psychiatric A+Ox3, euthymic affect Updated Medication List Medication Instructions Recorded Confirmed Type cefdinir 300 mg capsule 300 mg PO BID 8 days #16 caps 04/02/23 Rx ondansetron 4 mg disintegrating 4 mg PO Q8H PRN nausea and 04/02/23 Rx tablet vomiting 5 days #14 tabs Hospital Stay Data Diagnostic Imagining Performed 03/31/23 11:55 CT soft tissue neck w con Stat Pending Results Patient Have Any Pending Studies at Discharge: Yes (Blood cultures so far negative, complete at 5 days) Discharge Instructions Given to Patient (Per Discharging Provider) You were admitted to the hospital for sepsis due to a strep pharyngitis infecti on. You were given IV antibiotics and fluids with improvement in your symptoms. At 48 hours you did not have any bacteria in your blood. We will monitor this through the 5 day nivia to make sure no blood infection. Because of this, we felt safe to discharge you home with oral antibiotics. If you symptoms worsen at home, please seek urgent medical attention. The antibiotics and nausea medications were sent to [facility] in [facility]. Take these starting tomorrow morning, one pill every 12 hours. We also recommend that at some point you get evaluated for your penicillin allergy by an pouncing lathe operator, to confirm that you are still allergic. I provided Dr. Garnde's information in your discharge paperwork to get connected. Your work and school note is attached to this paperwork. Total Time Total Time Spent Total Time Spent (In Minutes): 35 min Coding Level of Care Code 19525 INP/OBS DISCH >30 MIN Diagnoses Sepsis A41.9 Strep pharyngitis J02.0 Nausea and vomiting R11.2
== END 2023-04-02 13:01 | disposition home or self-care (01) | DRG 872 ==
LOC: ED 07:33 → 2S 13:04 → SUATTDRO 13:04 → 2S 14:33